=== PATIENT | male | born 1950 | race Two or more races ===

== ENCOUNTER 2025-06-09 06:11 | Inpatient (IN) | payer OTHER ==
[~2025-06-09] VITALS: Ht 162.6 cm; Wt 69.0 kg
[2025-06-09] VITALS (7 sets, daily range): BP systolic 149–176; BP diastolic 84–92; PULSE 60–77; RESP 16–18; TEMP 97.5–98; O2SAT 95–100
[~2025-06-09 06:11] MED LIST: ASPI81CH59 PO; CHOLCAP10 PO; CYAN-37 PO; CYCL-837 PO; LEVO-848 PO; LOSA-535 PO; LOVA40TA72 PO; MAGN250T11 PO; VITA1CAP PO
[2025-06-09] MEDS: ceFAZolin 2 GM/D5W50ml 50 ML IV ONE (06:32)
[2025-06-09] MEDS: PROPOFOL 200 ML IV ONE (06:38)
[2025-06-09] MEDS: TRANEXAMIC ACID 20 ML ONE (06:38)
[2025-06-09] MEDS ORDERED: KETAMINE 50mg/ML 1ml syringe ONE (07:15)
[2025-06-09] MEDS ORDERED: MIDAZOLAM HCL 2MG/2ML 2ml VIAL (1mg/ml) ONE (07:15)
[2025-06-09] MEDS ORDERED: fentaNYL CITRATE 100 MCG/2 ML VL ONE (07:15)
[2025-06-09] MEDS ORDERED: HYDROmorphone HCL 2 MG/ML VL/or syr ONE (07:15)
[2025-06-09] MEDS ORDERED: ONDANSETRON HCL 4 MG/2 ML VIAL ONE (07:16)
[2025-06-09] MEDS ORDERED: LIDOCAINE 2%HCL (LOCAL ANESTH.) INJ 20ML MDV ONE (07:16)
[2025-06-09] MEDS ORDERED: KETOROLAC TROMETH 30 MG/ML 1ML VIAL ONE (07:16)
[2025-06-09] MEDS ORDERED: GLYCOPYRROLATE 0.2 MG/ML 1ML VIAL ONE (07:17)
[2025-06-09] MEDS ORDERED: fentaNYL CITRATE 5 ML ONE (07:17)
[2025-06-09] MEDS ORDERED: ROCURONIUM 10MG/ML 10ML VIAL IV ONE (07:17)
--- NOTE | 2025-06-09 07:33 | DVHHP2 ---
History Allergies: Coded Allergies: NO KNOWN ALLERGIES (Unverified , 06/03/25) Chief Complaint: Cervical stenosis, here for elective surgery Present Illness(Onset/Duration Patient has been experiencing left and right arm pain with neck pain for many years, he also has been experiencing left arm pain seems to have been resolved since his last surgery in 1998 where he had cervical surgery but he does not recall the levels Noncontributory to case Past Surgical History: Other (Previous cervical spine surgery back in 1998 on the right side) Exam Exam General Appearance: None, Normal HEENT: Normal ENT Inspection Neck: Normal Inspection, Other (Left and right arm numbness, both intermittent) Respiratory: No Accessory Muscle Use, No Respiratory Distress, Other (Patient is speaking full sentences) Cardiovascular: Other (Skin is pink warm and dry) Neurologic: Alert, Other (Motor exam 5/ x4 no complaints of any weakness at any time) Cerebellar Function: Normal Skin: Other (No concerns express) Plan Additional comments: Patient is here for elective surgery with Dr Ky Andrew C4-5, C6-7 anterior cervical diskectomy and fusion Patient understands that the goals to discharge are that the patient is eating eating without nausea. drinking fluids without coughing or choking, voiding clear yellow urine, passing gas or having a bowel movement, ambulating safely with or without assistive devices, and patient is able to control pain with oral analgesia only. The risks/benefits/alternatives of surgery were explained to the patient in det ail including but not limited to , stroke, paralysis, myocardial infarction, bleeding, infection, complications of anesthesia (dry mouth, sore throat, dental damage, respiratory depression, blindness), postoperative infection, incomplete relief of symptoms, recurrence of symptoms, damage to blood vessels, nerves and tendons, pulmonary embolism and possible need for repeat surgery in the future. Pain, damage to surrounding soft tissue structures, need for reoperation or future surgery, persistent pain/ disability/deformity, bone graft collapse or extrusion of interbody device, instrumentation failure, need for instrumentation removal, dural tear, temporary or permanent nerve root damage, deep vein thrombosis, pulmonary embolism, were described to the patient in detail and the patient wishes to proceed. No guarantee of surgical outcome/improvement was implied. All of the questions were answered thoroughly and consents were obtained. Call with questions Dahiana Guerin [facility] Orthopaedic Spine Surgery nurse practitioner For Dr Kayla Andrew Patient was examined, chart reviewed, labs evaluated, and diagnostic studies and findings analyzed. Case was discussed with Dr. Ky Andrew who formulated the plan of care. This medical document was created using an electronic medical record system with [employer] dictation system. Although this document has been carefully reviewed, there might still be some phonetic and typographical errors. These areas are purely typographical due to imperfections of the software programs, and do not reflect any compromise in the patient's medical care. SAI GUERIN NP Jun 09, 2025 07:32
[2025-06-09] MEDS: MINERAL OIL TOPICAL 10ml TOP ONE (09:22)
[2025-06-09] MEDS ORDERED: MORPHINE SULFATE INJ 2 MG/ml SYRG IV PRN ×2 (10:00)
[2025-06-09] MEDS ORDERED: ONDANSETRON HCL 4 MG/2 ML VIAL IV PRN (10:00)
[2025-06-09] MEDS ORDERED: ACETAMINOPHEN 325 MG TAB PO PRN (10:00)
[2025-06-09] MEDS ORDERED: NITROGLYCERIN 0.4 MG SL TAB SL PRN (10:00)
[2025-06-09] MEDS ORDERED: HYDROcodone-ACET 10/325MG TAB PO PRN (10:00)
[2025-06-09] MEDS ORDERED: SUGAMMADEX 200mg/2ml Vial (100MG/ML) IV ONE (10:02)
[2025-06-09] MEDS ORDERED: HYDROmorphone HCL 2 MG/ML VL/or syr IV PRN (10:30)
[2025-06-09] MEDS: ACETAMINOPHEN IV 1000 MG/100ML (10MG/ML) IV ONE (10:30)
--- NOTE | 2025-06-09 10:30 | DVHOP2 ---
Operative Report - 2 Report Details Date: 06/09/25 Preop Diagnosis: cervical spinal stenosis with severe axial neck pain and radiculopathy Postop Diagnosis: same as pre op Surgeon: Ky Andrew MD Senior Java Ui Developer: Miesha Guerin NP Anesthesiologist: Quyen Hart MD Anesthesia: General Consent: The patient was informed of the risks and benefits of the procedure. These include but are not limited to complications of anesthesia, postoperative infection, incomplete relief of symptoms, recurrence of symptoms, damage to blood vessels, nerves and tendons, deep venous thrombosis, pulmonary embolism and possible need for repeat surgery in the future. Name of Procedure Performed see detailed note Procedure Details Procedure Details: Pre Op Diagnosis: Cervical Degenerative Disk Disease and Spinal Stenosis at C4/5 and C6/7 Causing incapacitating neck pain, radiculopathy and progressive neurologic deficit with possible non union prior C5/6 fusion Post Op Diagnosis: 1.Cervical spnal stenosis at C4/5 and C6/7 causing severe axial neck pain and radiculopathy Procedure: Cervical 4 to 5 anterior cervical discectomy with Cervical 4-5 foraminotomies and facetectomies to decompression the spinal canal and Cervical 5 nerve roots Cervical 6 to 7 anterior cervical discectomy with Cervical 6/7 foraminotomies and facetectomies to decompression the spinal canal and Cervical 7 nerve roots Cervical 4-7 anterior cervical Fusion Cervical 4-7 anterior cervical instrumentation with freestanding cages Cervical 4-5 placement of allograft prosthetic device Cervical 6-7 placement of allograft prosthetic device Microscope for micro dissection Surgeon: Ky Andrew MD Anesthesia: General Assist: Miesha Guerin NP Fluids and EBL: see anesthesia note Procedure Note: The patient was seen in the Pre-anesthesia Care Unit and the site of the incision was initialed by me with a felt tipped marker. All questions by the patient were answered to the satisfaction of the patient and the chart was reviewed. The patient was taken to the operating room and placed supine on the [facility] Flat top table. General anesthesia was induced. Neuromonitoring leads were placed. A rolled towel was placed between the shoulder blades to hyperextend out the chest which will allow better exposure of the cervical spine. Halter traction to 10 pounds was placed. The arms were padded and adducted to the patients side making sure all pulses in the hands were present. Tape traction was undertaken on the shoulders to give us better radiographic exposure of the distal cervical spine. A gel-pad was placed under the occiput and 5 degrees of extension was placed on the neck without adverse effects to the patient. The anterior neck was prepped and draped. Pre-operative antibiotics were given 30 minutes prior to the start of the procedure. A c-arm fluoroscope was used to mauricio out the incision site. The prior anterior cervical spine surgery used an incision on the right side of the neck. We chose to make the incision on the left side. At this time, a time out was taken per usual protocol. Next an incision was made through the skin with a 15 blade scalpel through the subcutaneous tissue down to the platysma. Because of the prior cervical surgery, I expected fibrosis in the neck and therefore to make sure good exposure would be achieved. I made a longitudinal incision along the anterior border of the sternocleidomastoid muscle. Self-retainers were placed. The platysma was incised along the longitudinal border with a Metzenbaum scissors. Blunt dissection was made through the deep cervical and pre-tracheal fascia taking care to protect the carotid sheath laterally and the Trachea/esophagus medially. The dissection was carried down to the prevertebral fascia. Any crossing vessels were ligated using a vascular clip or coagulated with a bovie. An esophageal retractor was next used to retract the trachea/esophagus and a bent [address] through the anterior annulus of the cervical disk and a lateral C-arm fluoroscopic image was taken to confirm that we were at the correct level. Next, bovie electrocautery was used to expose the bones of cervical 4,5,6, and 7 and bipolar electrocautery was used to lift up the Longus Colli and Capitus muscles. Self Retainers were used to retract the longus colli and capitus muscles bilaterally as well as the trachea/esophagus to the right and the carotid sheath to the left. Smooth thin self raining retractors were placed proximally and distally and a needle was placed again in the anterior annulus of the disk and an image taken to confirm the correct level. At this point, the microscope was wheeled in and an 11 blade scalpel incised the anterior annulus of C4/5 and C6/7. The C5/6 level was found to be fused. Next, straight and curved curettes removed the remainder of the disks all the way down to the posterior longitudinal ligament. Carefully, a Kerison number one rongeur incised the posterior longitudinal ligament at the lateral end of the cervical 4/5 and 6/7 disks and using a micro, blunt tip nerve hook to separate the posterior longitudinal ligament from the dura, alternating 1 mm and 2 mm Kerison rongeurs removed the posterior longitudinal ligament. Next, Kerison 1mm and 2 mm rongeurs were alternated to get under the uncinate processes and undercut them to perform foraminotomies and facetectomies at these levels to decompress the central canal and the cervical 5 and 7 nerve roots respectively. Next the microscope was wheeled away and the c-arm fluoroscope was wheeled into the field and a lateral image was obtained. Increasing size graft trials were used starting at a 5 mm thick size until the proper tension in the disk space and height yarsanism obtained. &mm thickness was chosen for both levels. Next we placed the free standing inter body devices at lacy of the 2 levels respectively. The sizes were tailored to make sure proper tension was restored in the ligaments without over tensioning. Satisfactory placement was confirmed in the AP and lateral views using a C-arm fluoroscope. Copious irrigation of the wound with sterile saline and all bleeding was controlled before closure initiated. At this point, a 10 Armenian [address] was place deep to the Platysma muscle and the Platysma was approximated with one interrupted 0-Vicryl suture. The subcutaneous tissue was closed with interrupted 2-0 vicryl sutures and the skin was closed with nicholas. Sterile dressings were placed and a cervical collar placed, the patient extubated, transferred to the stretcher and taken to the Recovery Room in unremarkable condition. After surgery, in [place], a [place]-J equivalent cervical collar and external bone stimulator placed. Other Notes:CPT CODES: [id number], [id number] ( IT WAS A TWO LEVEL ACDF) Condition Stable Disposition Still a Patient [place] ANDREW MD Jun 09, 2025 10:30
[2025-06-09] MEDS ORDERED: LOSA-534 PO (13:45)
[2025-06-09] MEDS: CYCLOBENZAPRINE HCL 10 MG TAB PO SCH (13:52)
[2025-06-09] MEDS: D5W/SOD CHLO 0.9% 1,000 ML IV SCH (13:52)
[2025-06-09] MEDS: ceFAZolin 1GM/50ML 50 ML IV SCH (13:52)
--- NOTE | 2025-06-09 16:36 | DVH ---
CLINICAL INDICATION: CERVIAL 4/5 AND 6/7 DISECTOMY AND FUSION TECHNIQUE: 7 radiographic views of the cervical spine surgery were obtained. Comparison: MR CERVICAL SPINE W/O on DOS: 12/01/24, CR CERVICAL SPINE 2-3 VIEW on DOS: 07/16/24 FINDINGS/IMPRESSION: Total fluoro time 10.9 seconds Cumulative dose: 0.82 mGy Refer to operative note for further detail.
--- NOTE | 2025-06-09 16:40 | DVH ---
XY C ARM FLUOROSCOPY UP TO 60MIN, HISTORY: CERVIAL 4/5 AND 6/7 DISECTOMY AND FUSION TECHNICAL DATA: 7 intraoperative fluoroscopic spot images were obtained . COMPARISON: XY CERVICAL SPINE 3V on DOS: 06/09/25, MR CERVICAL SPINE W/O on DOS: 12/01/24, CR CERVICAL S PINE 2-3 VIEW on DOS: 07/16/24 FINDINGS/IMPRESSION: C-arm fluoroscopic images were obtained for anatomic localization. The images are of low resolution b ut demonstrate instrumentation over the C spine . Total fluoroscopy time was 10.9 seconds. 0.82 mGy. Please see the operative report for further details.
[2025-06-09] MEDS: LOSARTAN POTASSIUM 50 MG TAB PO SCH (17:14)
[2025-06-09] MEDS: DOCUSATE SOD 100 MG CAP PO SCH (21:06)
[2025-06-09] MEDS: hydrALAZINE HCL 20 MG/ML VL IV ONE (21:08)
[2025-06-10] VITALS (7 sets, daily range): BP systolic 136–159; BP diastolic 69–81; PULSE 65–94; RESP 18; TEMP 97.5–98.2; O2SAT 94–98
[2025-06-10] MEDS: LEVOTHYROXINE SODIUM 50 MCG TAB PO SCH (10:11)
[2025-06-10 10:58] LABS: Hepatitis B Surface Antigen Negative (Negative); Hepatitis C Antibody Negative (Negative)
--- NOTE | 2025-06-10 11:56 | DVHDS2 ---
Discharge Summary Date of Admission Jun 09, 2025 at 09:58 Date of Discharge: Jun 10, 2025 Admitting Diagnosis CERVICAL SPINAL STENOSIS Labs/Diagnostic Data: Laboratory Results Test 06/10/25 05:38 Hepatitis B Surface Antigen Negative (Negative) Hepatitis C Antibody Negative (Negative) Brief Hx & Hospital Course: The gentleman tolerated the surgery well. Once he tolerated po paim meds, po diet and passed physical therapy, he was cleared to d/c home with home health. Operations or Procedures see detailed note Condition at Discharge: Stable Final Diagnosis/Problems List same as pre op Discharge Disposition: Home Discharge Instruct/Medications Diet: Regular Activity: No Restrictions, As Tolerated Scheduled Aspirin (Aspirin Low Dose), 1 TAB PO DAILY, (Reported) Cyclobenzaprine Hcl (Cyclobenzaprine Hcl), 1 TAB PO TID, (Reported) Levothyroxine Sodium (Synthroid Tablet), 1 TAB PO DAILY, (Reported) Losartan Potassium (Losartan Potassium), 1 TAB PO QPM, (Reported) Losartan Potassium (Losartan Potassium), 1 TAB PO DAILY, (Reported) Lovastatin (Lovastatin), 1 TAB PO QPM, (Reported) Miscellaneous Medications Cholecalciferol (D2000 Ultra Strength), 2,000 UNIT PO, (Reported) Cyanocobalamin (B12), 1,000 MCG PO, (Reported) Magnesium Gluconate (Magnesium Gluconate), 250 MG PO, (Reported) Vitamin D & K (D3 + K2 125-100 Mcg), 1 CAP PO, (Reported) Discharge Statement: "Patient was advised to return to the ER or call 911 if any headaches, dizziness, shortness of breath, chest pain, abdominal pain, bleeding, fevers, or worsening of medical condition. Patient was counseled about treatment plan, medications, possible side effects, patientverbalized understanding. All questions were answered to the best of my ability. This discharge took greater then 30 minutes in planning, reviewing documentation, counseling the patient, and discussing with other team members." ASSESSMENT ASSESSMENT Assessment same as pre op ABDULAZIZ CRANE MD Jun 10, 2025 11:56
--- NOTE | 2025-06-10 13:12 | DVHINCON2 ---
Date of service: Jun 09, 2025 Reason for Consultation Medical management while in the hospital History of Present Illness Patient has been experiencing left and right arm pain with neck pain for many years, he also has been experiencing left arm pain seems to have been resolved since his last surgery in 1998 where he had cervical surgery but he does not recall the levels Noncontributory to case. He underwent successful C-spine surgery and postop he is doing well. He is re- evaluated by orthopedic surgeon Past Medical History Hypertension, hyperlipidemia, DJD C-spine Past Surgical History C4-5, C6-7 anterior cervical diskectomy and fusion Family History: Patient reports no known family medical history. Allergies: Coded Allergies: NO KNOWN ALLERGIES (Unverified , 06/03/25) Home Meds Reported Medications Losartan Potassium (Losartan Potassium) 50 Mg Tab, 1 TAB PO DAILY, #30 TAB 5 Refills 06/09/25 Vitamin D & K (D3 + K2 125-100 Mcg) 1 Cap Cap, 1 CAP PO, CAP 06/03/25 Magnesium Gluconate (Magnesium Gluconate) 250 Mg Tab, 250 MG PO, TAB 06/03/25 Cyclobenzaprine Hcl (Cyclobenzaprine Hcl) 5 Mg Tab, 1 TAB PO TID, #30 TAB 06/03/25 Cholecalciferol (D2000 Ultra Strength) 2,000 Unit Cap, 2000 UNIT PO, CAP 06/03/25 Cyanocobalamin (B12) 1,000 Mcg/15 Ml Liq, 1000 MCG PO, LIQ 06/03/25 Aspirin (Aspirin Low Dose) 81 Mg Chw, 1 TAB PO DAILY, #90 TAB 3 Refills 06/03/25 Lovastatin (Lovastatin) 40 Mg Tab, 1 TAB PO QPM, #90 TAB 3 Refills 06/03/25 Losartan Potassium (Losartan Potassium) 100 Mg Tab, 1 TAB PO QPM, #90 TAB 3 Refills 06/03/25 Levothyroxine Sodium (SYNTHROID TABLET) 50 Mcg Tb, 1 TAB PO DAILY, #90 TAB 3 Refills 06/03/25 Current Medications Current Medications Medications (Trade) Dose Ordered Sig/Jackson Route PRN Reason Start Time Stop Time Status Last Admin Cyclobenzaprine HCl (Flexeril Tablet) 10 mg TID PO 06/09/25 14:00 06/10/25 05:25 Cefazolin Sodium 50 ml @ 100 mls/hr Q8HR IV 06/09/25 14:00 06/11/25 06:29 06/10/25 05:23 Levothyroxine Sodium (Synthroid Tablet) 50 mcg DAILY PO 06/10/25 10:00 06/10/25 10:11 Losartan Potassium (Cozaar Tablet) 100 mg QPM PO 06/09/25 18:00 06/09/25 17:14 Review of Systems No complaints of chest pain or shortness for breath fevers chills or sweats. No difficulty swallowing. Other review of systems reviewed normal. Vital Signs Vital Signs Date Time Temp Pulse Resp B/P (MAP) Pulse Ox O2 Delivery O2 Flow Rate FiO2 06/10/25 12:40 98.1 87 18 159/80 (106) 94 98.1 06/10/25 08:00 Room Air* 0 21 Physical Exam Alert awake oriented x3. Walking in the room. No acute distress. HEENT neck supple no JVD. Oropharynx clear. Heart regular rate and rhythm S1-S2. Lungs fair air movement without rales wheezes. Abdomen soft nontender positive bowel sounds. Extremities no edema positive pulses Labs/Diagnostic Data Labs Test 06/10/25 05:38 Range/Units Hepatitis B Surface Antigen Negative Negative Hepatitis C Antibody Negative Negative Assessment C4-5, C6-7 anterior cervical diskectomy and fusion Hypertension Hyperlipidemia Patient is clinically stable. No acute issues. He is re-evaluated orthopedic surgery felt stable to be discharged. Discussed with the patient regarding outpatient follow up and resume home medications Plan discussed with: Patient, Other MADDIE IVEY MD Jun 10, 2025 13:12
[2025-06-10] MEDS ORDERED: ETOMIDATE (2MG/ML) 10ML VIAL IV ONE (16:59)
== END 2025-06-10 17:00 | disposition home health service (06) | DRG 473 ==
LOC: SUR 06:11 → OVERFLOW 09:58 → TELE-CENTR 11:18
PROVIDERS: ADMIT Orthopaedic Surgery; ATTEND Orthopaedic Surgery
PROC: 0RG20A0 Fusion of 2 or more Cervical Vertebral Joints with Interbody Fusion Device, Anterior Approach, Anterior Column, Open Approach (ICD-10-PCS; 2025-06-09)
PROC: 01N10ZZ Release Cervical Nerve, Open Approach (ICD-10-PCS; 2025-06-09)
PROC: 00NW0ZZ Release Cervical Spinal Cord, Open Approach (ICD-10-PCS; 2025-06-09)
PROC: 4A11X4G Monitoring of Peripheral Nervous Electrical Activity, Intraoperative, External Approach (ICD-10-PCS; 2025-06-09)
PROC: 0RB30ZZ Excision of Cervical Vertebral Disc, Open Approach (ICD-10-PCS; principal; 2025-06-09 07:44)
DX: M48.02 Spinal stenosis, cervical region (principal); M50.121 Cervical disc disorder at C4-C5 level with radiculopathy; I10 Essential (primary) hypertension; E78.5 Hyperlipidemia, unspecified; Z98.1 Arthrodesis status
CPT/HCPCS: 36415; 72040; 76000; 86803; 86850; 86900; 86901; 87340; 97110; 97116; 97163; 97530; G0378; J1100; J1885; J1956; J2250; J2405; J2704; J7042